=== PATIENT | male | born 1975 | race African-American/Black ===

== ENCOUNTER 2019-03-14 18:52 | Observation (INO) | payer OTHER ==
--- NOTE | 2019-03-14 19:08 | PDOC ---
Rapid Medical Evaluation Chief Complaint: CVA/TIA Time Seen by Provider: 03/14/19 18:58 Medical Evaluation: Allergies Allergy/AdvReac Type Severity Reaction Status Date / Time No Known Drug Allergies Allergy Verified 03/14/19 19:02 Vital Signs Temp Pulse Resp BP Pulse Ox 97.7 F 74 22 H 136/82 98 03/14/19 18:57 03/14/19 18:57 03/14/19 18:57 03/14/19 18:57 03/14/19 18:57 03/14/19 19:06 Pt c/o: 1 hour ago felt weak to left arm and "numbness to left hand" followed by nausea and palpitation, now stating weakness to left leg and arm Pt on brief exam: 4/5 left hand grasp and lat raise, unable to balance self on left leg, no foot drop, vss. ekg rate 62 Pt ordered for: stroke protocol Pt to proceed to the ED Discharge Disposition - Diagnosis Left-sided weakness - Discharge Dispostion Disposition: HOME Condition at time of disposition: Stable - Referrals - Patient Instructions - Post Discharge Activity
--- NOTE | 2019-03-14 19:34 | PDOC ---
Documentation entered by Patrick Potter SCRIBE, acting as scribe for Beatrice Navarro MD. Beatrice Navarro MD: This documentation has been prepared by the Abbey murcia Xhesika, SCRIBE, under my direction and personally reviewed by me in its entirety. I confirm that the documentation accurately reflects all work, treatment, procedures, and medical decision making performed by me. Attending Attestation - Resident Resident Name: Tessa Zuluaga - ED Attending Attestation I have performed the following: I have examined & evaluated the patient, The case was reviewed & discussed with the resident, I agree w/resident's findings & plan, Exceptions are as noted - HPI HPI: 03/14/19 [id number] male who arrived via private ambulance developed palpitations, left arm pain and left arm weakness 1 hour prior to arrival. He felt like he was going to pass out. - Physicial Exam PE: 03/14/19 21:04 Well-nourished well-developed 43-year-old male who presented with left arm pain palpitations and felt like he was going to pass out Head normocephalic atraumatic Eyes Neck no bruits Lungs clear to auscultation bilaterally CVS regular rate and rhythm S1-S2 no murmurs or gallops appreciated Abdomen nontender nondistended No flank pain Skin warm and dry Neuro alert and oriented x3, ambulatory, no drift, no ataxia, subjective tingling numbness to left arm and left leg - Medical Decision Making 03/14/19 22:57 ct scan of the head : no acute intracranial pathology cxr normal mediastinum. no infiltrates first troponin is negative cbc is wnl, chemistries unremarkable pt admitted for presyncopal episode
--- NOTE | 2019-03-14 19:43 | PDOC ---
History of Present Illness - History of Present Illness Initial Comments: 03/14/19 20:16 43 yo M no known PMH, presenting with L sided numbness and tingling. Patient reportedly felt like he was going to pass out about an hour before coming into the ER, associated with L sided pain down his arm and leg. About 20 minutes before coming into the ER, patient developed new weakness, numbness, and tingling of his L arm and leg with inability to walk normally 2/2 weakness, so patient was taken straight to CT scan. Upon returning from CT scan, patient only complains of residual tingling in his L hand. He no longer complains of weakness or numbness in L arm or L leg. Patient's father had a stroke, he is uncertain at what age. Specifically denies CP, SOB, abd pain, constipation/diarrhea, fevers/chills, RENTERIA , N/V. <Tessa Zuluaga - Last Filed: 03/14/19 20:35> <Beatrice Navarro - Last Filed: 03/14/19 23:03> - General Chief Complaint: CVA/TIA Stated Complaint: PALPITATIONS/LFT ARM NUMBNESS Time Seen by Provider: 03/14/19 18:58 Past History - Past Medical History Anemia: No Asthma: No Cancer: No Cardiac Disorders: No CVA: No COPD: No CHF: No Dementia: No Diabetes: No GI Disorders: No Disorders: No HTN: No Hypercholesterolemia: No Liver Disease: No Seizures: No Thyroid Disease: No - Surgical History Abdominal Surgery: No Appendectomy: No Cardiac Surgery: No Cholecystectomy: No Lung Surgery: No Neurologic Surgery: No Orthopedic Surgery: No - Psycho Social/Smoking Cessation Hx Smoking History: Never smoked Have you smoked in the past 12 months: No Hx Alcohol Use: No Drug/Substance Use Hx: No Substance Use Type: None <Tessa Zuluaga - Last Filed: 03/14/19 20:35> <Beatrice Navarro - Last Filed: 03/14/19 23:03> - Past Medical History Allergies/Adverse Reactions: Allergies Allergy/AdvReac Type Severity Reaction Status Date / Time No Known Drug Allergies Allergy Verified 03/14/19 19:02 Home Medications: Ambulatory Orders Famotidine 20 mg PO DAILY 03/14/19 Review of Systems - Review of Systems Comments:: 03/14/19 20:16 GENERAL/CONSTITUTIONAL: No fever or chills. No weakness. HEAD, EYES, EARS, NOSE AND THROAT: No change in vision. No ear pain or discharge. No sore throat. CARDIOVASCULAR: No chest pain or shortness of breath. RESPIRATORY: No cough, wheezing, or hemoptysis. GASTROINTESTINAL: No nausea, vomiting, diarrhea or constipation. GENITOURINARY: No dysuria, frequency, or change in urination. MUSCULOSKELETAL: No joint or muscle swelling or pain. No neck or back pain. SKIN: No rash NEUROLOGIC: No headache, vertigo, loss of consciousness, or change in strength. Tingling down left side, most prominent in L hand. ENDOCRINE: No increased thirst. No abnormal weight change. HEMATOLOGIC/LYMPHATIC: No anemia, easy bleeding, or history of blood clots. ALLERGIC/IMMUNOLOGIC: No hives or skin allergy <Tessa Zuluaga - Last Filed: 03/14/19 20:35> *Physical Exam - Vital Signs Last Vital Signs Temp Pulse Resp BP Pulse Ox 97.7 F 74 22 H 136/82 98 03/14/19 18:57 03/14/19 18:57 03/14/19 18:57 03/14/19 18:57 03/14/19 18:57 <Tessa Zuluaga - Last Filed: 03/14/19 20:35> - Vital Signs Last Vital Signs Temp Pulse Resp BP Pulse Ox 97.7 F 51 L 18 136/89 100 03/14/19 18:57 03/14/19 22:30 03/14/19 22:30 03/14/19 22:30 03/14/19 22:30 <Beatrice Navarro - Last Filed: 03/14/19 23:03> NIH Stroke Scale - Last Known Well Date/Time & Onset Date Last Known Well: 03/14/19 Time Last Known Well: 18:45 - Initial Evaluation Level of consciousness: Alert Ask patient the month and their age: Answers both correctly Ask patient to open & close eyes; make fist and let go: Obeys both correctly Best gaze (horizontal eye movement): Normal Visual field testing: No visual field loss Facial paresis (Show teeth/raise eyebrows/close eyes tight): Normal symmetrical movement Motor Function: Left Arm: Normal Motor Function: Right Arm: Normal (extends arm 90 (or 45) degrees for 10 seconds without drift Motor Function: Left Leg: Normal (extends leg 30 degrees for 5 seconds without drift) Motor Function: Right Leg: Normal (extends leg 30 degrees for 5 seconds without drift) Limb Ataxia: No ataxia Sensory(Use pinprick test arms,legs,trunk,face/side to side): Normal Best language (Describe picture, name items, read sentences): No Aphasia Dysarthria (read several words): Normal articulation Extinction and Inattention: No abnormality - Total Score NIH Stroke Scale Score: 0 <Tessa Zuluaga - Last Filed: 03/14/19 20:35> tPA Exclusion Checklist 0-3hr - Time Elapsed Date last known well: 03/13/19 Time last known well: 18:45 Elaspsed time: 1 Day(s) and 4 Hour(s) and 17 Minutes - Thrombolytic Therapy Candidate Is the patient eligible for Thrombolytic Therapy?: No - Exclusion Criteria 0-3hr SBP greater than 185 or DBP greater than 110mmHg despite tx: No Recent IC/spinal surgery,head trauma or stroke w/in last 3mo: No Hx of previous IC hemorrhage, IC neoplasm, AVM or aneurysm: No Active internal bleeding: No Blding diathesis(low plt ct, inc PTT,INR>1.7 or use of NOAC): No Symptoms suggest subarachnoid hemorrhage: No CT demonstrates multilobar infarct(>1/3 cerebral hemiphere): No Arterial puncture at noncompressible site in previous 7 days: No Blood glucose concentration less than 50mg/dL (2.7mmol/L): No - Relative Exclusion Criteria 0-3h Life expectancy <1yr/severe co-morbid illness/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 Initially presented with pre- syncope, dizziness, lightheadedness an hour prior to ED arrival. Then 20 minutes before ED arrival, patient experienced diffuse weakness down L arm and leg with inability to walk normally. By the time patient came from CT scan, only complaining of tingling in L hand. - stroke workup - NIHSS currently 0 - will admit for further workup 03/14/19 20:41 Labs unremarkable, EKG sinus bradycardia at 58 bpm. Will admit. <Tessa Zuluaga - Last Filed: 03/14/19 20:35> Discharge - Discharge Information Problems reviewed: Yes <Tessa Zuluaga - Last Filed: 03/14/19 20:35> <Beatrice Navarro - Last Filed: 03/14/19 23:03> - Discharge Information Clinical Impression/Diagnosis: Left-sided weakness
[2019-03-14 19:54] LABS: BASO % 0.4 % (0-2.0); EOS % 1.6 % (0-4.5); HEMOGLOBIN 14.4 GM/dL (11.7-16.9); MCH 27.8 pg (25.7-33.7); MCHC 32.8 g/dl (32.0-35.9); MEAN CELL VOLUME 84.7 fl (80-96); MEAN PLT VOLUME 9.9 fl (7.5-11.1); MONO % 8.2 % (3.8-10.2); NEUT % 63.8 % (42.8-82.8); PLATELET COUNT 179 K/MM3 (134-434); RBC 5.19 M/mm3 (4.00-5.60); RDW 13.9 % (11.9-15.9); WHITE BLOOD COUNT 8.4 K/mm3 (4.0-10.0)
[2019-03-14 20:06] LABS: INR 0.99 (0.83-1.09); PROTHROMBIN TIME (PATIENT) 11.7 SEC (9.7-13.0)
[2019-03-14 20:09] LABS: ACTIVATED PTT 37.8 SECONDS (25.2-36.5)
[2019-03-14 20:23] LABS: ALBUMIN 4.3 g/dl (3.4-5.0); BILIRUBIN,TOTAL 0.4 mg/dL (0.2-1); BLOOD UREA NITROGEN 16.8 mg/dL (7-18); CALCIUM 8.7 mg/dL (8.5-10.1); CREATININE 1.3 mg/dL (0.55-1.3); POTASSIUM 3.8 mmol/L (3.5-5.1); TOT PROT 7.7 g/dl (6.4-8.2)
[2019-03-14] MEDS ORDERED: ASPIRIN 325 MG ENTERIC COATED TABLET (FP) PO ONE (20:25)
[2019-03-14] MEDS ORDERED: ASPIRIN 325 MG ENTERIC COATED TABLET (FP) ONE (20:32)
--- NOTE | 2019-03-14 22:26 | HP ---
CHIEF COMPLAINT: Lt sided numbness and tingling PCP: Dr. Cortes HISTORY OF PRESENT ILLNESS: This is a 43 y/o M with no known PMHx, presenting with L sided numbness and tingling X 1 hr prior to coming into the ED. Patient reportedly felt like he was going to pass out once he stood up, associated with L sided pain down his arm and leg. Pt admits to having leg cramps and his endorses to him shaking her legs and arms while he sleeps, which has woken him up from sleep. He endorses to frequent leg tapping as well. He has no hx of Fe deficiency as far as pt knows. He has not had a sleep study done in past. About 40 minutes after the initial numbness patient developed new onset weakness, of his L arm and leg with difficulty ambulating normally 2/2 weakness. Patient's father had a stroke in his 50's but unsure of cause. Pt admits to not eating or drinking much today and has been heavy lifting all day moving furniture around in his apartment. He currently is unemployed but previously worked at [employer] where he would lift heavy boxes all day long as well. Pt specifically denies CP , SOB, abd pain, constipation/diarrhea, fevers/chills, RENTERIA, N/V. ER course was notable for: (1) CT head negative, NIHSS of 0, (2)ASA 325 mg given, negative orthostatics (3)CK- 310, LDL-104, Glu-112 Recent Travel: denies PAST SURGICAL HISTORY: Lt sided carpal tunnel release Social History: Smoking: denies Alcohol: denies Drugs: denies Allergies No Known Drug Allergies Allergy (Verified 03/14/19 19:02) HOME MEDICATIONS: Home Medications Medication Instructions Recorded Famotidine 20 mg PO DAILY 03/14/19 REVIEW OF SYSTEMS Negative except in HPI. PHYSICAL EXAMINATION Vital Signs - 24 hr 03/14/19 03/14/19 18:57 19:50 Temperature 97.7 F Pulse Rate 74 Pulse Rate [ 62 Apical] Respiratory 22 H 14 Rate Blood Pressure 136/82 Blood Pressure 127/69 [Right Arm] O2 Sat by Pulse 98 99 Oximetry (%) GENERAL: Awake, somnolent, and fully oriented, in no acute distress. NIHSS score of 0. HEAD: Normal with no signs of trauma. EYES: Pupils equal, round and reactive to light, extraocular movements intact, sclera anicteric, conjunctiva clear. No lid lag. NECK: Normal range of motion, supple without lymphadenopathy, JVD, or masses. LUNGS: Breath sounds equal, clear to auscultation bilaterally. No wheezes, and no crackles. No accessory muscle use. HEART: Regular rate and rhythm, normal S1 and S2 without murmur, rub or gallop. ABDOMEN: Soft, nontender, not distended, normoactive bowel sounds, no guarding, no rebound, no masses. MUSCULOSKELETAL: Normal range of motion at all joints. No bony deformities or tenderness. No CVA tenderness. Negative apley scratch test, negative empty can test UPPER EXTREMITIES: 2+ pulses, warm, well-perfused. 5/5 ROM b/l, sensation reduced on Left side, no dysdiakonesia present LOWER EXTREMITIES: 2+ pulses, warm, well-perfused. 4/5 LLE ROM, normal sensation b/l. NEUROLOGICAL: Cranial nerves II-XII intact. Normal speech. Normal gait. Normal romberg sign PSYCHIATRIC: Cooperative. Good eye contact. Appropriate mood and affect. SKIN: Warm, dry, no rashes or lesions noted Laboratory Results - last 24 hr 03/14/19 03/14/19 03/14/19 19:30 19:30 19:30 WBC RBC Hgb Hct MCV MCH MCHC RDW Plt Count MPV Absolute Neuts (auto) Neutrophils % Lymphocytes % Monocytes % Eosinophils % Basophils % Nucleated RBC % PT with INR 11.70 INR 0.99 PTT (Actin FS) 37.8 H Sodium 141 Potassium 3.8 Chloride 105 Carbon Dioxide 31 Anion Gap 5 L BUN 16.8 Creatinine 1.3 Est GFR (CKD-EPI)AfAm 77.45 Est GFR (CKD-EPI)NonAf 66.83 Random Glucose 112 H Calcium 8.7 Total Bilirubin 0.4 AST 24 ALT 38 Alkaline Phosphatase 79 Creatine Kinase 310 H Creatine Kinase Index No Result Required. CK-MB (CK-2) < 1.0 Troponin I < 0.02 Total Protein 7.7 Albumin 4.3 Triglycerides 109 Cholesterol 166 Total LDL Cholesterol 104 H HDL Cholesterol 48 TSH 1.84 Blood Type Antibody Screen ASSESSMENT/PLAN: This is a 43 y/o M with no known PMHx, presenting with L sided numbness and tingling X 1 hr prior to coming into the ED. Patient reportedly felt like he was going to pass out once he stood up, associated with L sided pain down his arm and leg. Pt admits to having leg cramps and his endorses to him shaking her legs and arms while he sleeps, which has woken him up from sleep. #R/o Acute CVA vs TIA - CT head negative - NIHSS 0, given ASA 325 in ED - Neuro consult- Dr. Mena - echo,carotid,MRI,MRA - ? RLS given pt moves limbs while sleeping and suffers from leg cramps/leg tapping - will order Ferritin/Fe studies given <50 ferritin could potentiate RLS - doubt orthostatic related although pt recently without poor PO intake - negative orthostatic - may be muscular given pt has been heavy lifting recently and in past, no sign of rotator cuff injury on physical exam - Could give pt trial of NSAIDS to assess if symptoms improve - ASA 81 daily and high intensity statin in jaclyn of his LDL 112 and possible CVA/ TIA. DVT PPX: Lovenox 40 SQ Visit type - Emergency Visit Emergency Visit: Yes ED Registration Date: 03/14/19 Care time: The patient presented to the Emergency Department on the above date and was hospitalized for further evaluation of their emergent condition. - New Patient This patient is new to me today: Yes Date on this admission: 03/15/19 - Critical Care Critical Care patient: No ATTENDING PHYSICIAN STATEMENT I saw and evaluated the patient. I reviewed the resident's note and discussed the case with the resident. I agree with the resident's findings and plan as documented. SUBJECTIVE: OBJECTIVE: ASSESSMENT AND PLAN:
[2019-03-14 22:36] LABS: EPI CELLS 0.1 /HPF (0-5/HPF); HYALINE CASTS 0 /lpf (0-8); PH,URINE 6.5 (5.0-8.0); URINE APPEARANCE CLEAR; URINE BACTERIA 1.9 /hpf (NEGATIVE); URINE BILIRUBIN NEGATIVE (NEGATIVE); URINE COLOR YELLOW; URINE GLUCOSE (UA) NEGATIVE (NEGATIVE); URINE KETONE NEGATIVE (NEGATIVE); URINE LEUK ESTERASE NEGATIVE (NEGATIVE); URINE NITRITE NEGATIVE (NEGATIVE); URINE PROTEIN NEGATIVE (NEGATIVE); URINE RBC 3 /hpf (0-4); URINE UROBILINOGEN 0.2 mg/dL (0.2-1.0); URINE WBC 0 /hpf (0-5)
[2019-03-14 22:55] LABS: COCAINE, UR NEGATIVE ng/ml (CUTOFF=300); METHADONE, UR NEGATIVE ng/ml (CUTOFF=300); OPIATES, URI NEGATIVE ng/ml (CUTOFF=300); PHENCYCLIDINE,URINE NEGATIVE ng/ml (CUTOFF=25); URINE AMPHETAMINES NEGATIVE ng/ml (CUTOFF=500); URINE BARBITURATES NEGATIVE ng/ml (CUTOFF=200); URINE BENZODIAZEPINES NEGATIVE ng/ml (CUTOFF=200)
--- NOTE | 2019-03-14 23:51 | PN ---
Teaching Attending Note Name of Resident: Heriberto Tomlin ATTENDING PHYSICIAN STATEMENT I saw and evaluated the patient. I reviewed the resident's note and discussed the case with the resident. I agree with the resident's findings and plan as documented. SUBJECTIVE: 43 yo man complaining of sudden onset of left upper and lower extremity weakness , Headache, dizziness which started at around 6 PM on 02/12/2019. Also complained of some paresthesias in his left hand patient reports history of carpal tunnel syndrome with surgery to left wrist 1 year ago however reports that paresthesias/numbness were present in entire left hand. His symptoms have improved greatly and reported that the lasted about 2 hours. Of note patient had a positive family history for CVA in his father when he was 50 years of age. OBJECTIVE: Last Vital Signs Temp Pulse Resp BP Pulse Ox 97.7 F 87 16 128/74 100 03/14/19 18:57 03/14/19 23:43 03/14/19 23:43 03/14/19 23:43 03/14/19 23:43 GENERAL: Well developed, well nourished. Awake and alert. No acute distress. HEENT: Normocephalic, atraumatic. PERRLA, EOMI. No conjunctival pallor. Sclera are non- icteric. Moist mucous membranes. Oropharynx is clear. NECK: Supple. Full ROM. No JVD. Carotid pulses 2+ and symmetric, without bruits. No thyromegaly. No lymphadenopathy. CARDIOVASCULAR: Regular rate and rhythm. No murmurs, rubs, or gallops. Distal pulses are 2+ and symmetric. PULMONARY: No evidence of respiratory distress. Lungs clear to auscultation bilaterally. No wheezing, rales or rhonchi. ABDOMINAL: Soft. Non-tender. Non-distended. No rebound or guarding. No organomegaly. Normoactive bowel sounds. MUSCULOSKELETAL Normal range of motion at all joints. No bony deformities or tenderness. No CVA tenderness. EXTREMITIES: No cyanosis. No clubbing. No edema. No calf tenderness. SKIN: Warm and dry. Normal capillary refill. No rashes. No jaundice. NEUROLOGICAL: Patient awake, alert, oriented to person place and time. Left lower extremity motor was 4 out of 5 with decreased sensation relative to right lower extremity. Cranial nerves were grossly intact. PSYCHIATRIC: Cooperative. Good eye contact. Appropriate mood and affect. Abnormal Lab Results 03/14/19 03/14/19 03/14/19 19:30 19:30 19:30 PTT (Actin FS) 37.8 H Anion Gap 5 L Random Glucose 112 H Creatine Kinase 310 H Total LDL Cholesterol 104 H Urine Blood 03/14/19 22:30 PTT (Actin FS) Anion Gap Random Glucose Creatine Kinase Total LDL Cholesterol Urine Blood 1+ H Imaging studies reviewed Head CT was negative for any acute insults. Noted to have a partially empty sella turcica which is likely of little significance at this time. ASSESSMENT AND PLAN: 43-year-old man with TIA. CVA should be ruled out at this time. Presentation was at least moderately suspicious and appears to have residual left lower extremity weakness along with decreased gross sensation. Admit to telemetry High-dose statin therapy Aspirin N.p.o. Speech and swallow consult Neurology evaluation PT Bedrest and fall precautions BGM's Echo Will need brain MRI and MRA Bedrest and fall precautions, patient may attempt to ambulate with assistance of nurse Heparin subcutaneously for DVT prophylaxis
[2019-03-15 00:47] VITALS: BMI 28.8
[2019-03-15] MEDS: HEPARIN NA (PORCINE) 5,000 UNITS/ML 1ML VIAL SQ SCH ×2 (05:47→16:08)
[2019-03-15 06:35] LABS: BASO % 0.5 % (0-2.0); EOS % 2.2 % (0-4.5); HEMATOCRIT 41.8 % (35.4-49); HEMOGLOBIN 13.7 GM/dL (11.7-16.9); LYMPH % 34.8 % (8-40); MCH 27.8 pg (25.7-33.7); MCHC 32.8 g/dl (32.0-35.9); MEAN CELL VOLUME 84.9 fl (80-96); MEAN PLT VOLUME 9.5 fl (7.5-11.1); MONO % 10.1 % (3.8-10.2); NEUT % 52.4 % (42.8-82.8); RBC 4.92 M/mm3 (4.00-5.60); RDW 14.1 % (11.9-15.9); WHITE BLOOD COUNT 8.2 K/mm3 (4.0-10.0)
[2019-03-15 07:18] LABS: BLOOD UREA NITROGEN 15.2 mg/dL (7-18); CALCIUM 8.3 mg/dL (8.5-10.1); CREATININE 1.1 mg/dL (0.55-1.3); PHOSPHOROUS 3.4 mg/dL (2.5-4.9); POTASSIUM 3.8 mmol/L (3.5-5.1)
[2019-03-15] MEDS ORDERED: ASPIRIN COATED 81 MG TABLET.EC PO SCH (10:00)
[2019-03-15] MEDS ORDERED: FLU VACCINE QUAD 60 MCG/0.5 ML (MDV 19-20) IM ONE (10:00)
[2019-03-15 10:17] LABS: ERYTHROCYTE SEDIMENTATION RATE 2 mm/hr (0-10)
[2019-03-15 10:39] LABS: PLATELET COUNT 162 K/MM3 (134-434)
--- NOTE | 2019-03-15 10:40 | EKG ---
Test Reason : Blood Pressure : / mmHG Vent. Rate : 062 BPM Atrial Rate : 062 BPM P-R Int : 140 ms QRS Dur : 100 ms QT Int : 402 ms P-R-T Axes : 000 005 -10 degrees QTc Int : 408 ms NORMAL SINUS RHYTHM WITH SINUS ARRHYTHMIA NORMAL ECG NO PREVIOUS ECGS AVAILABLE Confirmed by DAMIAN SHEIKH, GANGA ([id number]) on 03/15/2019 10:39:57 AM Referred By: Confirmed By:GANGA SALGADO MD
[2019-03-15 11:21] LABS: IRON SERUM 101 ug/dL (50-175); TOTAL IRON BINDING CAPACITY 272 ug/dL (250-450)
--- NOTE | 2019-03-15 11:22 | CONSULT ---
Admitting History and Physical - Primary Care Physician PCP: De Bills - Admission History of Present Illness: Per EMR- 43 y/o M with no known PMHx, presenting with L sided numbness and tingling X 1 hr prior to coming into the ED. Patient reportedly felt like he was going to pass out once he stood up, associated with L sided pain down his arm and leg. Pt admits to having leg cramps and his endorses to him shaking her legs and arms while he sleeps, which has woken him up from sleep. He endorses to frequent leg tapping as well. He has no hx of Fe deficiency as far as pt knows. He has not had a sleep study done in past. About 40 minutes after the initial numbness patient developed new onset weakness, of his L arm and leg with difficulty ambulating normally 2/2 weakness. Patient's father had a stroke in his 50's but unsure of cause. Pt admits to not eating or drinking much today and has been heavy lifting all day moving furniture around in his apartment. He currently is unemployed but previously worked at [employer] where he would lift heavy boxes all day long as well. Pt specifically denies CP, SOB, abd pain, constipation/diarrhea, fevers/chills, RENTERIA, N/V. History Source: Patient Limitations to Obtaining History: No Limitations - Smoking History Smoking history: Never smoked Have you smoked in the past 12 months: No - Alcohol/Substance Use Hx Alcohol Use: No History - Admission Reason For Visit: NUMBNESS AND TINGLING OF LEFT HAND - Diagnostics CT Scan: Report Reviewed (CT head (-)) Other: Report Reviewed (carotid u/s (-)) - General Mental Status: Alert and Oriented, Awake and Alert, Able to Follow Commands Attention: Intact Ability to Follow Directions: Excellent Head/Neck Control: WFL - Hearing Hearing: Functional Hearing: Normal Speech Evaluation - Communication Primary Language: [place] Communication: Yes: Within Normal Limits Oral Expression Ability: Yes: Mild Impairment (Mildly hesitant, dysfluent, which pt reports is because he is nervous. He said this happens when he is nervous. Good naming,repetition) - Speech Production Able to Make Needs Known: Yes: WNL Intelligibility: Yes: WNL - Speech Characteristics Voice Loudness: Normal Voice Pitch: Yes: Normal Voice Phonatory-based Quality: Yes: Normal Speech Pattern: Normal Speech Clarity: < 100% Nasal Resonance: Normal Articulation: Yes: Precise Dysfluency: Yes: Tonic (intermittent stutter at onset of words, which he reports is sec to being nervous.) Rate of Speech: Intact - Language/Auditory Comprehension Follows: Yes: 2 Stage Simple Commands Observation: Able to respond to yes/no queries: Yes, Comprehends Conversational Speech: Yes - Language/Verbal Expression Able to Respond to Simple Queries: Yes: WNL Able to Communicate Wants and Needs: Yes: WNL Functional Communication Status: Yes: WNL Attention: Yes: Intact - Memory/Perception alf Memory: Yes: WNL Short Term Memory: Yes: WNL - Swallow Evaluation/Bedside Assessment Current Nutritional Intake: Regular, Thin Liquids, Other (pt has been npo, awaiting swallow eval) Oral Secretions: Yes: WFL Dentition: Yes: Adequate Facial Symmetry at Rest: Symmetrical Facial Symmetry on Retraction: Symmetrical Facial Movement: Controlled Against Resistance Opening: Normal Against Resistance Closing: Normal Pucker Lips: Normal Smile: Normal Lingual Movement: Normal, Symmetric Lingual Speed of Movement: Normal Lingual Movement Strgth Against Opposition: Normal Lingual Movement Characteristics: Normal Velopharyngeal Movement: Normal Laryngeal Elevation: WFL Laryngeal Movement: Able to Palpate Rate of Intake: WFL Bolus Size: WFL Labial Seal: WFL Chewing: WFL Oral Prep Time: WFL A-P Transit: WFL Pocketing: None Timing of Swallow: WFL Coughing/Throat Clear: No Change in Voice: No Recommendations - Speech Evaluation, Impression/Plan Impression: intermittent stutter at onset of words, which he reports is sec to being nervous. Sp production, cognition, swallowing intact - Dysphagia Impressions/Plan Swallowing Skills: WF Dysphagia Impressions: No Impairment *Silent aspiration: cannot be R/O at bedside Recommendations: Neuro Consult (pending) - Recommendations Diet Consistency: Regular Medication Administration: Whole with water Liquids: Thin Liquids
[2019-03-15] MEDS ORDERED: LORazepam 2 MG/ML SDV VIAL IVPUSH PRN (13:59)
--- NOTE | 2019-03-15 14:10 | PN ---
Teaching Attending Note Name of Resident: Ronnell Ureña ATTENDING PHYSICIAN STATEMENT I saw and evaluated the patient. I reviewed the resident's note and discussed the case with the resident. I agree with the resident's findings and plan as documented with exceptions below. SUBJECTIVE: Patient seen and examined. Reports residual left foot weakness, no further hand symptoms, headache or dizziness. Eager to go home. OBJECTIVE: Vital Signs Period Temp Pulse Resp BP Sys/[place] Pulse Ox Last 24 Hr 97.7 F-98.1 F 50-87 14-22 127-145/50-89 98-100 Intake & Output 03/12/19 03/13/19 03/14/19 03/15/19 23:59 23:59 23:59 23:59 Intake Total 260 Balance 260 Weight 242 lb 237 lb General: sitting in bed, no acute distress Neck: soft, supple Chest: CTAB, no rales or wheezing Abdomen:Soft, obese, NT Extremities: no edema Neuro: AAOX3, PERRL, EOMI, facial symmetry, speech normal, Power weakness left foot plantar flexion, 5/5 otherwise, sensation intact and symmetric to light touch, no pronator drift, cranial nerves II-XII intact Home Medications Medication Instructions Recorded Famotidine 20 mg PO DAILY 03/14/19 Active Medications Aspirin (Ecotrin -) 81 mg PO DAILY [facility] Last Admin: 03/15/19 11:12 Dose: 81 mg Atorvastatin Calcium (Lipitor -) 40 mg PO HS [facility] Heparin Sodium (Porcine) (Heparin -) 5,000 unit SQ TID [facility] Last Admin: 03/15/19 05:47 Dose: 5,000 unit Lorazepam (Ativan Injection -) 0.5 mg IVPUSH ONCE PRN PRN Reason: ANXIETY Laboratory Results - last 24 hr 03/14/19 03/14/19 03/14/19 19:30 19:30 19:30 WBC RBC Hgb Hct MCV MCH MCHC RDW Plt Count MPV Absolute Neuts (auto) Neutrophils % Lymphocytes % Monocytes % Eosinophils % Basophils % Nucleated RBC % Platelet Estimate Platelet Comment ESR PT with INR 11.70 INR 0.99 PTT (Actin FS) 37.8 H Sodium 141 Potassium 3.8 Chloride 105 Carbon Dioxide 31 Anion Gap 5 L BUN 16.8 Creatinine 1.3 Est GFR (CKD-EPI)AfAm 77.45 Est GFR (CKD-EPI)NonAf 66.83 Random Glucose 112 H Calcium 8.7 Phosphorus Iron 101 TIBC 272 Iron Saturation 37 Unsaturated IBC 171 L Ferritin 207.8 Total Bilirubin 0.4 AST 24 ALT 38 Alkaline Phosphatase 79 Creatine Kinase 310 H Creatine Kinase Index No Result Required. CK-MB (CK-2) < 1.0 Troponin I < 0.02 Total Protein 7.7 Albumin 4.3 Triglycerides 109 Cholesterol 166 Total LDL Cholesterol 104 H HDL Cholesterol 48 TSH 1.84 Urine Color Urine Appearance Urine pH Ur Specific [place] Urine Protein Urine Glucose (UA) Urine Ketones Urine Blood Urine Nitrite Urine Bilirubin Urine Urobilinogen Ur Leukocyte Esterase Urine WBC (Auto) Urine RBC (Auto) Urine Casts (Auto) U Epithel Cells (Auto) Urine Bacteria (Auto) Opiates Screen Methadone Screen Barbiturate Screen Phencyclidine Screen Ur Amphetamines Screen MDMA (Ecstasy) Screen Benzodiazepines Screen Cocaine Screen U Marijuana (THC) Screen Blood Type Antibody Screen 03/14/19 03/14/19 03/14/19 19:30 19:30 22:30 WBC 8.4 RBC 5.19 Hgb 14.4 Hct 44.0 MCV 84.7 MCH 27.8 MCHC 32.8 RDW 13.9 Plt Count 179 MPV 9.9 Absolute Neuts (auto) 5.4 Neutrophils % 63.8 Lymphocytes % 26.0 Monocytes % 8.2 Eosinophils % 1.6 Basophils % 0.4 Nucleated RBC % 0 Platelet Estimate Platelet Comment ESR PT with INR INR PTT (Actin FS) Sodium Potassium Chloride Carbon Dioxide Anion Gap BUN Creatinine Est GFR (CKD-EPI)AfAm Est GFR (CKD-EPI)NonAf Random Glucose Calcium Phosphorus Iron TIBC Iron Saturation Unsaturated IBC Ferritin Total Bilirubin AST ALT Alkaline Phosphatase Creatine Kinase Creatine Kinase Index CK-MB (CK-2) Troponin I Total Protein Albumin Triglycerides Cholesterol Total LDL Cholesterol HDL Cholesterol TSH Urine Color Urine Appearance Urine pH Ur Specific [place] Urine Protein Urine Glucose (UA) Urine Ketones Urine Blood Urine Nitrite Urine Bilirubin Urine Urobilinogen Ur Leukocyte Esterase Urine WBC (Auto) Urine RBC (Auto) Urine Casts (Auto) U Epithel Cells (Auto) Urine Bacteria (Auto) Opiates Screen Negative Methadone Screen Negative Barbiturate Screen Negative Phencyclidine Screen Negative Ur Amphetamines Screen Negative MDMA (Ecstasy) Screen Negative Benzodiazepines Screen Negative Cocaine Screen Negative U Marijuana (THC) Screen Negative Blood Type O POSITIVE Antibody Screen Negative 03/14/19 03/15/19 03/15/19 22:30 05:27 05:27 WBC 8.2 RBC 4.92 Hgb 13.7 Hct 41.8 MCV 84.9 MCH 27.8 MCHC 32.8 RDW 14.1 Plt Count 162 MPV 9.5 Absolute Neuts (auto) 4.3 Neutrophils % 52.4 Lymphocytes % 34.8 D Monocytes % 10.1 Eosinophils % 2.2 Basophils % 0.5 Nucleated RBC % 0 Platelet Estimate Platelet Comment Present ESR 2 PT with INR INR PTT (Actin FS) Sodium Potassium Chloride Carbon Dioxide Anion Gap BUN Creatinine Est GFR (CKD-EPI)AfAm Est GFR (CKD-EPI)NonAf Random Glucose Calcium Phosphorus Iron TIBC Iron Saturation Unsaturated IBC Ferritin Total Bilirubin AST ALT Alkaline Phosphatase Creatine Kinase Creatine Kinase Index CK-MB (CK-2) Troponin I Total Protein Albumin Triglycerides Cholesterol Total LDL Cholesterol HDL Cholesterol TSH Urine Color Yellow Urine Appearance Clear Urine pH 6.5 Ur Specific [place] 1.010 Urine Protein Negative Urine Glucose (UA) Negative Urine Ketones Negative Urine Blood 1+ H Urine Nitrite Negative Urine Bilirubin Negative Urine Urobilinogen 0.2 Ur Leukocyte Esterase Negative Urine WBC (Auto) 0 Urine RBC (Auto) 3 Urine Casts (Auto) 0 U Epithel Cells (Auto) 0.1 Urine Bacteria (Auto) 1.9 Opiates Screen Methadone Screen Barbiturate Screen Phencyclidine Screen Ur Amphetamines Screen MDMA (Ecstasy) Screen Benzodiazepines Screen Cocaine Screen U Marijuana (THC) Screen Blood Type O POSITIVE Antibody Screen 03/15/19 05:27 WBC RBC Hgb Hct MCV MCH MCHC RDW Plt Count MPV Absolute Neuts (auto) Neutrophils % Lymphocytes % Monocytes % Eosinophils % Basophils % Nucleated RBC % Platelet Estimate Platelet Comment ESR PT with INR INR PTT (Actin FS) Sodium 140 Potassium 3.8 Chloride 105 Carbon Dioxide 29 Anion Gap 6 L BUN 15.2 Creatinine 1.1 Est GFR (CKD-EPI)AfAm 94.79 Est GFR (CKD-EPI)NonAf 81.78 Random Glucose 90 Calcium 8.3 L Phosphorus 3.4 Iron TIBC Iron Saturation Unsaturated IBC Ferritin 204.1 Total Bilirubin AST ALT Alkaline Phosphatase Creatine Kinase Creatine Kinase Index CK-MB (CK-2) Troponin I Total Protein Albumin Triglycerides Cholesterol Total LDL Cholesterol HDL Cholesterol TSH 2.58 D Urine Color Urine Appearance Urine pH Ur Specific [place] Urine Protein Urine Glucose (UA) Urine Ketones Urine Blood Urine Nitrite Urine Bilirubin Urine Urobilinogen Ur Leukocyte Esterase Urine WBC (Auto) Urine RBC (Auto) Urine Casts (Auto) U Epithel Cells (Auto) Urine Bacteria (Auto) Opiates Screen Methadone Screen Barbiturate Screen Phencyclidine Screen Ur Amphetamines Screen MDMA (Ecstasy) Screen Benzodiazepines Screen Cocaine Screen U Marijuana (THC) Screen Blood Type Antibody Screen CT brain/Carotid Duplex results reviewed Telemetry occasional PVCs, no events otherwise ASSESSMENT AND PLAN: 43 yom with no known PMHx admitted with episode of headache/dizziness/left hand/ foot weakness/tingling/numbness -Left hand foot weakness/tingling/numbness, now with residual Left foot weakness , r/o TIA/CVA -Dehydration Plan: telemetry, neuro checks. Carotid duplex/CT brain noted Follow up MRI/MRA brain/2Decho PT eval, speech/swallow eval DVTPPX SCDs, ambulation as tolerated Dispo dc in 24 hours pending above w/u and neurology input if no concerns. Discussed with patient and nursing, all questions answered.
[2019-03-15] MEDS ORDERED: LORazepam 2 MG/ML SDV VIAL IVPUSH SCH (14:12)
--- NOTE | 2019-03-15 14:41 | ECHO ---
Name: KATERIN SHEPPARD Exam:Adult Echocardiogram Study Date: 03/15/2019 10:23 AM Age: 43 yrs Reason For Study: Syncope/ TIA Height: 75 in Weight: 242 lb BSA: 2.4 m2 MMode/2D Measurements & Calculations IVSd: 1.0 cm Ao root diam: 2.6 cm LVIDd: 4.4 cm LA dimension: 3.3 cm LVIDs: 2.9 cm ACS: 2.0 cm LVPWd: 1.00 cm EDV(Teich): 89.6 ml LVOT diam: 2.0 cm ESV(Teich): 31.8 ml Doppler Measurements & Calculations MV E max olga: 59.7 cm/sec Ao V2 max: 129.0 cm/sec MV A max olga: 47.4 cm/sec Ao max P.7 mmHg MV E/A: 1.3 Ao V2 mean: 97.1 cm/sec MV dec time: 0.15 sec Ao mean P.0 mmHg Ao V2 VTI: 32.5 cm DELROY(I,D): 1.6 cm2 DELROY(V,D): 1.9 cm2 LV V1 max P.4 mmHg SV(LVOT): 53.2 ml LV V1 mean P.3 mmHg LV V1 max: 77.5 cm/sec LV V1 mean: 53.9 cm/sec LV V1 VTI: 16.7 cm TR max olga: 173.4 cm/sec PA V2 max: 59.2 cm/sec TR max P.0 mmHg PA max P.4 mmHg Procedure A two-dimensional transthoracic echocardiogram with color flow and Doppler was performed. The study w as technically difficult with many images being suboptimal in quality. Left Ventricle The left ventricular size, thickness and function are normal. The left ventricle is not well visualiz ed. The left ventricular ejection fraction is normal. Left Ventricular Filling pattern is normal for age. Reg ional wall motion abnormalities cannot be excluded due to limited visualization. Right Ventricle The right ventricle is not well visualized. Atria Normal left and right atrial size and function. Mitral Valve There is trivial mitral valve thickening. There is no mitral valve stenosis. There is mild to moderat e mitral regurgitation. Aortic Valve The aortic valve is normal in structure and function. No hemodynamically significant valvular aortic stenosis. No aortic regurgitation is present. Pulmonic Valve The pulmonic valve is not well visualized. Great Vessels The aortic root is normal size. Pericardium/Pleura There is no pericardial effusion. Interpretation Summary The study was technically difficult with many images being suboptimal in quality. The left ventricular size, thickness and function are normal The left ventricle is not well visualized. There is mild to moderate mitral regurgitation. The left ventricular ejection fraction is normal. Regional wall motion abnormalities cannot be excluded due to limited visualization. Left Ventricular Filling pattern is normal for age. The right ventricle is not well visualized. MD Aries Thompson 03/15/2019 02:41 PM
--- NOTE | 2019-03-15 18:49 | DS ---
Physical Exam: SUBJECTIVE: Patient seen and examined at the bedside. Stated that he is doing well and is eager to go home. Stated that he feels better and does not have weakness, dizziness, lightheadedness, visual changes, numbness, tingling, gait disturbances, fever, chills, chest pain, shortness of breath, abdominal pain, nausea, vomiting, constipation, diarrhea. OBJECTIVE: Vital Signs Period Temp Pulse Resp BP Sys/[place] Pulse Ox Last 24 Hr 97.7 F-98.1 F 50-87 14-22 125-155/50-89 98-100 PHYSICAL EXAM GENERAL: The patient is awake, alert, and fully oriented, in no acute distress. HEAD: Normal with no signs of trauma. EYES: PERRL, extraocular movements intact, sclera anicteric, conjunctiva clear. ENT: Oropharynx clear without exudates, moist mucous membranes. NECK: Trachea midline, full range of motion, supple. LUNGS: Breath sounds equal, clear to auscultation bilaterally, no wheezes, no crackles, no accessory muscle use. HEART: Regular rate and rhythm, S1, S2 without murmur, rub. ABDOMEN: Soft, nontender, nondistended, normoactive bowel sounds, no guarding, no rebound, no masses. EXTREMITIES: 2+ pulses, warm, well-perfused, no edema. NEUROLOGICAL: Cranial nerves II through XII grossly intact. Upper extremities 5/ 5 muscle strength bilaterally. RLE 5/5 muscle strength. LLE 4/5 muscle strength in plantar flexion, mild sensory deficit up to the ankle. Normal speech. 2/4 MSR upper and lower extremities bilaterally. Gait normal. PSYCH: Normal mood, normal affect. SKIN: Warm, dry, normal turgor, no rashes or lesions noted. LABS Laboratory Results - last 24 hr 03/14/19 03/14/19 03/14/19 19:30 19:30 19:30 WBC RBC Hgb Hct MCV MCH MCHC RDW Plt Count MPV Absolute Neuts (auto) Neutrophils % Lymphocytes % Monocytes % Eosinophils % Basophils % Nucleated RBC % Platelet Estimate Platelet Comment ESR PT with INR 11.70 INR 0.99 PTT (Actin FS) 37.8 H Sodium 141 Potassium 3.8 Chloride 105 Carbon Dioxide 31 Anion Gap 5 L BUN 16.8 Creatinine 1.3 Est GFR (CKD-EPI)AfAm 77.45 Est GFR (CKD-EPI)NonAf 66.83 Random Glucose 112 H Calcium 8.7 Phosphorus Iron 101 TIBC 272 Iron Saturation 37 Unsaturated IBC 171 L Ferritin 207.8 Total Bilirubin 0.4 AST 24 ALT 38 Alkaline Phosphatase 79 Creatine Kinase 310 H Creatine Kinase Index No Result Required. CK-MB (CK-2) < 1.0 Troponin I < 0.02 Total Protein 7.7 Albumin 4.3 Triglycerides 109 Cholesterol 166 Total LDL Cholesterol 104 H HDL Cholesterol 48 TSH 1.84 Urine Color Urine Appearance Urine pH Ur Specific [place] Urine Protein Urine Glucose (UA) Urine Ketones Urine Blood Urine Nitrite Urine Bilirubin Urine Urobilinogen Ur Leukocyte Esterase Urine WBC (Auto) Urine RBC (Auto) Urine Casts (Auto) U Epithel Cells (Auto) Urine Bacteria (Auto) Opiates Screen Methadone Screen Barbiturate Screen Phencyclidine Screen Ur Amphetamines Screen MDMA (Ecstasy) Screen Benzodiazepines Screen Cocaine Screen U Marijuana (THC) Screen Blood Type Antibody Screen 03/14/19 03/14/19 03/14/19 19:30 19:30 22:30 WBC 8.4 RBC 5.19 Hgb 14.4 Hct 44.0 MCV 84.7 MCH 27.8 MCHC 32.8 RDW 13.9 Plt Count 179 MPV 9.9 Absolute Neuts (auto) 5.4 Neutrophils % 63.8 Lymphocytes % 26.0 Monocytes % 8.2 Eosinophils % 1.6 Basophils % 0.4 Nucleated RBC % 0 Platelet Estimate Platelet Comment ESR PT with INR INR PTT (Actin FS) Sodium Potassium Chloride Carbon Dioxide Anion Gap BUN Creatinine Est GFR (CKD-EPI)AfAm Est GFR (CKD-EPI)NonAf Random Glucose Calcium Phosphorus Iron TIBC Iron Saturation Unsaturated IBC Ferritin Total Bilirubin AST ALT Alkaline Phosphatase Creatine Kinase Creatine Kinase Index CK-MB (CK-2) Troponin I Total Protein Albumin Triglycerides Cholesterol Total LDL Cholesterol HDL Cholesterol TSH Urine Color Urine Appearance Urine pH Ur Specific [place] Urine Protein Urine Glucose (UA) Urine Ketones Urine Blood Urine Nitrite Urine Bilirubin Urine Urobilinogen Ur Leukocyte Esterase Urine WBC (Auto) Urine RBC (Auto) Urine Casts (Auto) U Epithel Cells (Auto) Urine Bacteria (Auto) Opiates Screen Negative Methadone Screen Negative Barbiturate Screen Negative Phencyclidine Screen Negative Ur Amphetamines Screen Negative MDMA (Ecstasy) Screen Negative Benzodiazepines Screen Negative Cocaine Screen Negative U Marijuana (THC) Screen Negative Blood Type O POSITIVE Antibody Screen Negative 03/14/19 03/15/19 03/15/19 22:30 05:27 05:27 WBC 8.2 RBC 4.92 Hgb 13.7 Hct 41.8 MCV 84.9 MCH 27.8 MCHC 32.8 RDW 14.1 Plt Count 162 MPV 9.5 Absolute Neuts (auto) 4.3 Neutrophils % 52.4 Lymphocytes % 34.8 D Monocytes % 10.1 Eosinophils % 2.2 Basophils % 0.5 Nucleated RBC % 0 Platelet Estimate Platelet Comment Present ESR 2 PT with INR INR PTT (Actin FS) Sodium Potassium Chloride Carbon Dioxide Anion Gap BUN Creatinine Est GFR (CKD-EPI)AfAm Est GFR (CKD-EPI)NonAf Random Glucose Calcium Phosphorus Iron TIBC Iron Saturation Unsaturated IBC Ferritin Total Bilirubin AST ALT Alkaline Phosphatase Creatine Kinase Creatine Kinase Index CK-MB (CK-2) Troponin I Total Protein Albumin Triglycerides Cholesterol Total LDL Cholesterol HDL Cholesterol TSH Urine Color Yellow Urine Appearance Clear Urine pH 6.5 Ur Specific [place] 1.010 Urine Protein Negative Urine Glucose (UA) Negative Urine Ketones Negative Urine Blood 1+ H Urine Nitrite Negative Urine Bilirubin Negative Urine Urobilinogen 0.2 Ur Leukocyte Esterase Negative Urine WBC (Auto) 0 Urine RBC (Auto) 3 Urine Casts (Auto) 0 U Epithel Cells (Auto) 0.1 Urine Bacteria (Auto) 1.9 Opiates Screen Methadone Screen Barbiturate Screen Phencyclidine Screen Ur Amphetamines Screen MDMA (Ecstasy) Screen Benzodiazepines Screen Cocaine Screen U Marijuana (THC) Screen Blood Type O POSITIVE Antibody Screen 03/15/19 05:27 WBC RBC Hgb Hct MCV MCH MCHC RDW Plt Count MPV Absolute Neuts (auto) Neutrophils % Lymphocytes % Monocytes % Eosinophils % Basophils % Nucleated RBC % Platelet Estimate Platelet Comment ESR PT with INR INR PTT (Actin FS) Sodium 140 Potassium 3.8 Chloride 105 Carbon Dioxide 29 Anion Gap 6 L BUN 15.2 Creatinine 1.1 Est GFR (CKD-EPI)AfAm 94.79 Est GFR (CKD-EPI)NonAf 81.78 Random Glucose 90 Calcium 8.3 L Phosphorus 3.4 Iron TIBC Iron Saturation Unsaturated IBC Ferritin 204.1 Total Bilirubin AST ALT Alkaline Phosphatase Creatine Kinase Creatine Kinase Index CK-MB (CK-2) Troponin I Total Protein Albumin Triglycerides Cholesterol Total LDL Cholesterol HDL Cholesterol TSH 2.58 D Urine Color Urine Appearance Urine pH Ur Specific [place] Urine Protein Urine Glucose (UA) Urine Ketones Urine Blood Urine Nitrite Urine Bilirubin Urine Urobilinogen Ur Leukocyte Esterase Urine WBC (Auto) Urine RBC (Auto) Urine Casts (Auto) U Epithel Cells (Auto) Urine Bacteria (Auto) Opiates Screen Methadone Screen Barbiturate Screen Phencyclidine Screen Ur Amphetamines Screen MDMA (Ecstasy) Screen Benzodiazepines Screen Cocaine Screen U Marijuana (THC) Screen Blood Type Antibody Screen HOSPITAL COURSE: Xavier Estes is a 43 year old male with no known past medical history who was admitted after having an episode of L sided numbness, tingling, pre- syncopal episode, palpitations, diaphoresis, upon standing up after a day of poor oral intake and heavy activity. Patient was noted by family to not have a full syncopal episode where he was non-responsive but was unsteady and complained of L sided symptoms. Patient had a stroke workup with 2 head CTs which were both negative. Patient refused MRI and was advised of risks and benefits of not having MRI and continued to refuse. Carotid dopplers showed no significant stenosis. Echo was within normal limits. Patient was seen by Dr. Mena, who stated to the medical clerk that this episode was likely a panic episode and recommended that the patient be started on citalopram 10mg daily and follow up with primary care. Was seen by PT and had good gait. Seen by speech and was cleared for full diet. The patient was told to follow up with primary care and neurology outpatient. Patient was in agreement with the plan and reiterated it. Patient was discharged in stable condition. Date of Admission:03/15/19 Date of Discharge: 03/15/19 Minutes to complete discharge: 35 Discharge Summary Problems reviewed: Yes Reason For Visit: NUMBNESS AND TINGLING OF LEFT HAND Condition: Improved - Instructions Diet, Activity, Other Instructions: You were admitted to the hospital for left sided weakness, numbness, and fainting episode. You had a CT scan which did not show any acute findings. You had a carotid doppler (ultrasound of the arteries of your neck) which did not show any significant findings. You had an echocardiogram (ultrasound of the heart) which showed no acute findings and normal heart with some blood regurgitation in your valves. You may follow up for these findings with your primary care physician. We recommended an MRI for you, which you refused. We strongly suggest that you have an MRI in the future to assess your brain. You had a second head CT scan which did not show any progression of any brain issues. You were seen by Dr. Mena who recommended that you start on citalopram 10mg daily and follow up in the primary care clinic. MEDICATIONS Please START to take citalopram 10mg daily, and follow up with a primary care provider. Medication was sent to [facility] on [address] Please continue to take all of your medications as prescribed. REFERRALS Please see your primary care doctor within 1 week, if you do not have a primary care doctor you may make an appointment at the resident's clinic. The phone number to make an appointment is . Follow up with Dr. Mena, neurologist, within 1 week of discharge. SPECIAL INSTRUCTIONS If you have any symptoms of weakness, numbness, slurred speech, fainting, falls , chest pain, shortness of breath, or any other general feelings of unwellness [place] [facility] [place] [facility] [place]Provider Group] Jose Mena MD [Staff Physician] - 1 Week Disposition: HOME - Home Medications Comprehensive Discharge Medication List: Ambulatory Orders Citalopram Hydrobromide [Citalopram HBr] 10 mg PO DAILY #30 tablet 03/15/19 Problem List - Problems (1) Left-sided weakness Code(s): R53.1 - WEAKNESS This patient is new to me today: Yes Date on this admission: 03/15/19 Emergency Visit: Yes ED Registration Date: 03/15/19 Care time: The patient presented to the Emergency Department on the above date and was hospitalized for further evaluation of their emergent condition. Critical Care patient: No - Discharge Referral Referred to [facility] No
[2019-03-15 19:14] VITALS: BP 104/69; PULSE 90; TEMP 98.5
--- NOTE | 2019-03-15 19:20 | CONSULT ---
Consult - text type - Consultation Consultation Note: NEUROLOGY CONSULTATION is greatly appreciated: Events reviewed and discussed with medical voucher clerk. Patient examined with and [id number] at the bedside. 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 He has not worked since a box fell on his left hand two years ago. After 1 year of conservative Rx he underwent Left "Carpal tunnel and thumb surgery" at [facility] 1 year ago. He gradually improved, was symptom free in recent months, but has not RTW for fear of "hurting it again." His describes mood fluctuations and depression over the last few months. Yesterday developed brief numbness and pain left arm. He became lightheaded, anxiius, staring and "glassy eyed" and "collapsed" into his [id number] arms without LOC. In fact, he never stopped talking. In ER: CT of head (reviewed): Normal. EKG, troponins and BP's all normal. Now feels "fine" but admits to depression. MARLY: No bruits. Cor reg. No head trauma NEURO: Awake, alert. MS/speech normal but withdrawn/depressed. CN II-XII: normal without nystagmus Motor: No drift or tremor. Normal strength, bulk, tone and reflexes. Coord: No FTN Dystaxia Sensory: Normal Gait: Normal IMP: Normal neurological exam Presyncope most likely due to anxiety attack. Underlying depression. SUGGEST: Reassure Patient Begin citalopram 10 mg qd F/u Neuro and PMD Vocational rehab/job counselling. Thank you very much, Jose Mena MD
[2019-03-15] MEDS ORDERED: ATORVASTATIN CA 20 MG TABLET (FP) PO SCH ×2 (22:00)
== END 2019-03-15 19:52 | disposition home or self-care (01) ==
LOC: JER 18:52 → UNDOADMOB 19:44 → INTOOBSV 19:44 → JERBED 19:44 → J4W 03-15 00:23 → JERBED 03-15 15:04 → J4W 03-15 15:04
PROVIDERS: ADMIT Internal Medicine; ATTEND Hospitalist
PROC: 3E02340 Introduction of Influenza Vaccine into Muscle, Percutaneous Approach (ICD-10-PCS; principal; 2019-03-15)
PROC: 3E013GC Introduction of Other Therapeutic Substance into Subcutaneous Tissue, Percutaneous Approach (ICD-10-PCS; 2019-03-15)
DX: R53.1 Weakness (principal); R51 Headache; R42 Dizziness and giddiness; M79.602 Pain in left arm; M62.838 Other muscle spasm; E86.0 Dehydration; F41.9 Anxiety disorder, unspecified
CPT/HCPCS: 36415; 70450-TC; 71045-TC-FY; 80048; 80053; 80307; 81003; 82465; 82550; 82553; 82728; 83540; 83550; 83718; 83721; 84100; 84443; 84478; 84484; 85025; 85610; 85651; 85730; 86850; 86900; 86901; 93005; 93010; 93306-TC; 93880-TC; 97116-GP; 97161-GP; 99285-25; G0378; J1644; Q2036